=== PATIENT | male | born 1965 | race Caucasian/White ===

== ENCOUNTER 2016-08-03 08:25 | Observation (INO) | payer BC ==
[~2016-08-03] VITALS: Ht 177.8 cm; Wt 87.3 kg
[~2016-08-03 08:25] MED LIST: ALLO300T2 PO; ASPEC81 PO; CLBCRM30 EXT; FLUT1INH INH; IMDSR30 PO; INSDGI SC; METF-384 PO; METO25TA3 PO; MULT-610 PO; NRN300 PO; NTRSLP4 UT; NYSS/ PO; OXYC1TAB3 PO; PANT40TA PO; PLV75 PO; ROSU40TA PO; SITA100T3 PO; VALS-57 PO; VNTHFA/IN INH
[2016-08-03 09:00] VITALS: BP 121/78; PULSE 71; TEMP 36.5; O2SAT 96
[2016-08-03 09:03] VITALS: BMI 28.0
[2016-08-03] MEDS ORDERED: FENTANYL CITRATE INJ 50 MCG/1 ML 2 ML VIAL ONE ×4 (10:08→11:39)
[2016-08-03] MEDS ORDERED: MIDAZOLAM HCL 1 MG/ML 2ML VIAL ONE ×3 (10:08→11:34)
[2016-08-03] MEDS ORDERED: LIDOCAINE/EPINEPHRINE 1% 20 ML VIAL ONE (10:09)
--- NOTE | 2016-08-03 10:14 | Procedure Note ---
Pre-Mod Sedation Assessment General Date of Moderate Sedation: Aug 03, 2016. Vital Signs: Vital Signs Past 12 Hours Date Time Temp Pulse Resp B/P Pulse Ox O2 Delivery O2 Flow Rate FiO2 08/03/16 09:00 36.5 71 16 121/78 96 Room Air Review Cardiovascular: regular rate, rhythm, no edema, no gallop, no JVD, no murmur, + pertinent finding (diminished right radial pulse) Abdomen: normal bowel sounds, non tender, soft Lungs: lungs clear Pre-Sedation Airway Assessment Oral Cavity: WNL Able to Visualize Vocal Cords: No Short Thick Neck: No Hx of Sleep Apnea: No Smoking Status: Current Every Day Smoker Mallampati Classification: Class III Procedure Planning Contraindications-for Mod Sed: None Yes Notes The planned sedation has been discussed with the patient and consent obtained. I have identified the patient, determined the appropriateness of sedation and have assessed the patient immediately prior to the procedure. All medicine(s) and interventions are by my order.
--- NOTE | 2016-08-03 10:18 | History & Physical Bridge Note ---
H&P Re-Evaluation Bridge Note: I have examined the patient, reviewed the History & Physical and in the interval since the performance of the History & Physical I have noted the following changes of clinical significance: No changes noted Patient seen and examined by me. Three episodes of chest pain overnight . At rest. 30 minute longest. Episode this AM in prep area. No ST changes . Lasted several minutes. Spontaneous resolution. Procedure , risks, alternatives of cath/PCI discussed with patient. He consents to the procedure. Jerson Vaughan MD
[2016-08-03] MEDS ORDERED: HEPARIN SOD (PORCINE) 1000 UNIT/ML 10 ML VIAL ONE (10:59)
[2016-08-03] MEDS ORDERED: EPTIFIBATIDE 2 MG/ML 10 ML VIAL IV ONE (10:59)
[2016-08-03] MEDS ORDERED: EPTIFIBATIDE 0.75 MG/ML 75MG VIAL IV ONE (10:59)
[2016-08-03] MEDS ORDERED: NiCARDipine HCL INJ 2.5 MG/ML 10 ML AMP ONE (11:18)
[2016-08-03] MEDS ORDERED: NITROGLYCERIN/D5W 100MCG/ML 20ML SYR ONE (11:18)
[2016-08-03] MEDS ORDERED: CLOPIDOGREL BISULFATE 300 MG TAB PO ONE (11:53)
--- NOTE | 2016-08-03 12:51 | Procedure Note ---
Post-Mod Sedation Assessment General Date of Moderate Sedation Aug 03, 2016. Vital Signs: Vital Signs Past 12 Hours Date Time Temp Pulse Resp B/P Pulse Ox O2 Delivery O2 Flow Rate FiO2 08/03/16 11:55 73 16 118/89 97 Nasal Cannula 3 08/03/16 09:00 36.5 71 16 121/78 96 Room Air Review - Discharge Criteria Vital Signs Stable: Yes Alert/Oriented/Conversant: Yes Returned to Baseline Mental St: Yes Nausea Absent/Minimal: Yes Pain/Discomfort/Absent/Minimal: Yes Normal/Baseline Respirations: Yes Active Bleeding?: No Pt Received D/C Instructions: N/A Prescriptions Given: None Specific Proced. D/C Criteria Distal Pulses Present (Cardiac: Yes Groin site assessed-Card Cath: Yes Voided Prior To Discharge: Yes Discharged Patients Adult Escort/Transportation: N/A
[2016-08-03] MEDS ORDERED: ATROPINE SULFATE 0.1 MG/ML 5ML SYR IV PRN (13:00)
[2016-08-03] MEDS ORDERED: MoRPHine SULFATE 2 MG/ML CARP IV PRN (13:00)
[2016-08-03] MEDS ORDERED: NITROGLYCERIN 0.4 MG SL PER TAB CHARGE UT PRN (13:00)
[2016-08-03] MEDS ORDERED: ALBUTEROL HFA 8 GM INHALER INH PRN (13:00)
[2016-08-03] MEDS ORDERED: OXYCODONE HCL IR 5 MG TAB (IMMEDIATE RELEASE) PO PRN (13:00)
[2016-08-03] MEDS ORDERED: ONDANSETRON INJ 2 MG/ML 2 ML VIAL IV PRN (13:00)
[2016-08-03] MEDS ORDERED: ALUMINUM/MAGNESIUM/SIMETH (MAALOX MAX) 30 ML UDC PO PRN (13:00)
[2016-08-03] MEDS ORDERED: MAGNESIUM HYDROXIDE SUSP 30 ML UDC PO PRN (13:00)
[2016-08-03] MEDS ORDERED: ACETAMINOPHEN 325 MG TAB PO PRN (13:00)
[2016-08-03] MEDS ORDERED: IV FLUIDS COMPLETED PRN (13:45)
[2016-08-03] MEDS ORDERED: GLUCOSE 10 TABS/TUBE PO PRN (14:15)
[2016-08-03] MEDS ORDERED: GLUCOSE 40% GEL 15 GM TUBE PO PRN (14:15)
[2016-08-03] MEDS ORDERED: GLUCAGON FOR INJ 1 MG VIAL SQ PRN (14:15)
[2016-08-03] MEDS ORDERED: DEXTROSE 50% 50 ML SYR IV PRN (14:15)
[2016-08-03] MEDS ORDERED: CLOBETASOL~ORDER AWAITING ACTION SCH (16:00)
[2016-08-03 16:15] VITALS: BP 152/88; PULSE 92; TEMP 36.8; O2SAT 96; Ht 177.8 cm; Wt 87.3 kg
[2016-08-03] MEDS: SODIUM CHLORIDE 0.9% 1000ML 1,000 ML IV SCH (16:57)
--- NOTE | 2016-08-03 17:28 | Cardiac Catheterization ---
Procedure Note Procedure Date Aug 03, 2016. Pre-Procedure Diagnosis Angina (Worsening anginal symptoms developing over the past month Consistent with unstable angina. This included episodes of rest pain last night and this morning.), CAD AUC Score 7 Post-Procedure Diagnosis Severe CAD, Successful PCI, Elevated Intracardiac Pressures (LVEDP 19) Procedure(s) Performed Coronary Angiography, PTCA, Drug Eluting Stent, Ultrasound Guided Vascular Access, Femoral Artery Angiography Disease Case Manager Dr. Vaughan Alarm Operator(s) TAINA Nava Estimated Blood Loss 30 ml Medication(s) Clopidogrel (The patient was given additional 300 milligrams of oral clopidogrel post PCI. Was already on maintenance clopidogrel 75 milligrams daily.), Fentanyl, Heparin, Integrilin, Nitroglycerin (Intracoronary), Versed, Lidocaine 1% Summary of Findings Clinical indications: History of both bare metal stents and drug-eluting coronary artery stents. He has stents in his left circumflex marginal, proximal - early mid LAD, mid LAD, and right posterior descending artery. On March 17, 2015 he underwent deployment of a 2.25 x 18 millimeter Resolute drug-eluting stent in the proximal right PDA. On March 27/2015 deployment of 2 Resolute drug-eluting stents in the mid LAD. 2.25 x 18 millimeter and 2.25 x 8 millimeter stents. CAD risk factors include hypertension, dyslipidemia, type 2 diabetes mellitus, and continued cigarette smoking up to 1 pack a day. Over the past month the patient has developed recurrence of his typical anginal symptoms. This 1st was occurring with walking a few miles. Over the past month decreasing levels of activity have precipitated his anginal pain. Relief with rest. States that last night he had at least 3 episodes of rest anginal chest discomfort lasting up to 30 minutes. The episodes resolved with taking sublingual nitroglycerin. He had an episode while lying in the cardiac catheterization lab prep area this morning. An electrocardiogram was performed and revealed no diagnostic ischemic ST or T-wave abnormalities. The anginal symptoms spontaneously resolved prior to administration of any nitroglycerin. Catheterization site: 6 Singaporean sheath right femoral artery. The right radial artery was occluded from prior catheterization procedures. Diagnostic catheters: 6 Singaporean JL4 and JR4 diagnostic catheters. The JR4 catheter was used to perform left heart catheterization. Interventional equipment: 6 Singaporean EBU 3.75 guide catheter, Gem guidewire , Tipstar Sprinter 2.5 x 15 millimeter balloon dilatation catheter, Medtronic Resolute 3 x 18 millimeter drug-eluting stent, Medtronic Resolute 2.75 x 8 millimeter drug-eluting stent. Interventional protocol: Following diagnostic angiography intervention was performed to the lesions in the left circumflex. Balloon angioplasty was 1st performed to the proximal left circumflex stenosis. This was with the sprinter balloon. One balloon inflation of 8 atmospheres for 15 seconds was performed. The 3 x 18 millimeter stent was then deployed at a pressure of 16 atmospheres for duration of 35 seconds. Follow-up angiography was performed. Following close study of repeat left circumflex coronary angiograms in comparison to the coronary angiograms from 2015 it was felt that the stenosis in the distal left circumflex marginal was significant. The 2.75 x 8 millimeter stent was then deployed in a direct fashion to the stenosis at a pressure of 14 atmospheres for 45 seconds. A 2nd inflation was performed of the stent delivery balloon to a pressure 16 atmospheres for duration of 15 seconds. The stent delivery balloon did not become fully expanded until higher pressures were applied to the balloon. Follow-up angiography was then performed. During the balloon inflations patient has typical anginal symptoms. These resolved with deflation of the balloon. The patient had been given intravenous heparin and Integrilin prior to intervention. Therapeutic activated clotting times were documented. Hemostasis: When his ACT was less than 150 seconds hemostasis was obtained at the right femoral catheterization site with manual pressure. A closure device was not used because there was a large amount of scar tissue in the right femoral catheterization site. This was noted during insertion of the arterial sheath. Complications: None Interpretation: Fluoroscopy revealed coronary calcifications and the presence of the stents in the PDA, left circumflex marginal, and LAD. The coronary circulation is right dominant. Large caliber left main coronary artery without obstructive disease. Gave rise to medium caliber left descending and left circumflex coronary arteries. Proximal LAD with 30 percent and 20 percent sequential stenoses. There is then a stent from the proximal to early mid LAD. 30 percent in stent restenosis. The mid LAD then had a 20 percent stenosis. This was then followed by the mid LAD stents. 0-10 percent in stent restenosis inside of the mid LAD stents. The distal LAD was a very small caliber. Diffuse 0-10 percent stenoses. The proximal left circumflex had an eccentric 95 percent stenosis. This was followed by a 30-40 percent stenosis. The mid segment of the circumflex was aneurysmal. This involved the origin of a long medium caliber marginal artery. There is a stent in the proximal marginal with diffuse in stent restenosis of 30-50 percent. The distal marginal prior to bifurcating into 2 long small caliber branches had a focal 70 percent stenosis. Following stent deployment in the proximal circumflex the residual stenosis was 0-10 percent. No evidence of dissection, thrombus, perforation, or distal embolic event. Following stent deployment in the distal marginal residual stenosis 0 percent. There is a step-up and step-down prior to and distal to the stent respectively. No dissection, thrombus, perforation, or distal embolic event. Following intervention EDDY 3 flow throughout the left circumflex and its branches. The RCA was a medium caliber vessel. Proximal 0- 10 percent stenosis. The mid RCA had diffuse atherosclerotic disease with 10- 30 percent luminal diameter narrowing. 30 percent distal RCA stenosis. The distal RCA gave rise to a small caliber PDA. Patent stent site in the proximal PDA. The RCA gave rise to a small caliber posterolateral branch which had minor luminal irregularities. This gave rise to 2 very small caliber branches. In the event that a closure device was used right femoral angiography was performed. The sheath was located in the right common femoral artery. The right common femoral artery had a 20 percent stenosis. The right external iliac artery had no obstructive disease. The right superficial femoral artery and profunda artery had minor luminal irregularities. Plan: Observation admission overnight. Continue aspirin, clopidogrel, statin, angiotensin receptor lottie, and beta-lottie. Continue cardiology follow-up with Dr. Chaparro Ordaz Hemodynamics Rest Ao: 135/75/100 mm Hg Final Ao: 129/71/96 mm Hg LV: 147/19 mm Hg Recommendations Medical therapy and/or Counseling, PCI without planned CABG Specimens None Radiation Exposure (mGy) 3821 Contrast (mls) 275 ml Visipaque Fluids (cc crystalloids) 200 Drains none Anesthesia Intravenous Versed and fentanyl. Lidocaine 1 percent for local anesthesia Procedural Complication(s) None Disposition Behavioral Therapy Coordinator Holding/Recovery [facility] Data Cardiac Status Clinical evaluation leading to the procedure CAD Presntation: Unstable angina Anginal Classification: CCS IV Heart Failure: No Cardiogenic Shock w/in 24Hrs: No Cardiac Arrest w/in 24Hrs: No Imaging studies past 6 months: Yes Stress studies past 6 months: No Standard Exercise Stress Test: No Stress Echocardiogram: No Stress Testing w/SPECT MPI: No Cardiac CTA: No Coronary Anatomy Dominant: Right Left Main (% Stenosis): Normal LAD (% Stenosis): Proximal (30,20, then 30 % ISR), Mid (0-10 ), Distal (0-10) Circumflex (% Stenosis): Proximal (95.30-40) OM1 (% Stenosis): Proximal (diffuse 30-50 ISR), Distal (70) RCA (% Stenosis): Proximal (0-10), Mid (10-30), Distal (30) R PDA (% Stenosis): Proximal (Patent stent) R PL1 (% Stenosis): Proximal (0-10) Left Ventricular Angiography EF (%): Not applicable Diagnostic Physician's Name: Jakub Vaughan M.D. Status: Elective Closure Device Percutaneous Entry Location: Femoral Closure Device: none - manual hold Recommendations: Medical therapy and/or Counseling, PCI without planned CABG PCI Indication: Unstable Angina, Angina despite med therapy Lesion Segment Name: Proximal left circumflex Culprit Artery: Yes Stenosis Prior to Rx (%): 95 Chronic Total Occlusion: No IVUS: No FFR: No Pre-Procedure EDDY Flow: 3 Previously Treated Lesion: No Lesion Complexity: Non-High/Non-C Lesion Length (mm): 15 Thrombus Present: No Bifurcation Lesion: No Guidewire Across Lesion: Yes Guidewire: Stenosis Post-Procedure (%): 0-10 Post-Procedure EDDY Flow: 3 Device(s) Deployed: Yes Type of Device(s): Medtronic Resolute 3 x 18 millimeter drug eluting stent Lesion #2 Segment Name: Distal left circumflex marginal Culprit Artery: Yes Stenosis Prior to Rx (%): 70 Chronic Total Occlusion: No IVUS: No FFR: No Pre-Procedure EDDY Flow: 3 Previously Treated Lesion: No Lesion Complexity: Non-High/Non-C Lesion Length (mm): 4 Thrombus Present: No Bifurcation Lesion: No Guidewire Across Lesion: Yes Guidewire: Post-Procedure EDDY Flow: 3 Device(s) Deployed: Yes Type of Device(s): Medtronic Resolute 2.75 x 8 millimeter drug-eluting stent Intraprocedure Events Significant Dissection: No Perforation: No
[2016-08-03] MEDS: NYSTATIN SUSP 500,000 U/5 ML UDC PO SCH ×2 (18:20→20:04)
[2016-08-03 19:49] VITALS: BP 132/84; PULSE 78; TEMP 36.5; O2SAT 95
[2016-08-03] MEDS: METOPROLOL SUCC 25MG EXT REL TAB PO SCH (20:07)
[2016-08-03] MEDS ORDERED: GABAPENTIN 300 MG CAP PO SCH (21:00)
[2016-08-03] MEDS ORDERED: PANTOprazole SOD 40 MG TAB PO SCH (21:00)
[2016-08-03] MEDS ORDERED: INSULIN GLARGINE SOLOSTAR 100 UNITS/ML 3 ML PEN SC SCH (21:00)
[2016-08-03 22:59] VITALS: BP 138/83; PULSE 76; TEMP 36.8; O2SAT 93
[2016-08-04] MEDS: SODIUM CHLORIDE 0.9% 1000ML 1,000 ML IV SCH ×2 (03:00→08:24)
[2016-08-04 03:40] VITALS: BP 138/84; PULSE 80; TEMP 36.7; O2SAT 96
[2016-08-04 06:39] LABS: BASO % 0.3 %; BASO ABS # 0.02 K/uL (0-0.2); COMPLETE YES; EOS % 4.3 %; HEMATOCRIT 41.4 % (42-52); IG% 0.1 %; LYMPH ABS # 1.93 K/uL (1.2-3.4); MEAN CORPUSCULAR HEMOGLOBIN 31.4 pg (25-34); MEAN CORPUSCULAR HGB CONC 35.3 g/dl (32-36); MEAN PLATELET VOLUME 10.3 fL (7.4-10.4); MONO % 7.9 %; NEUT % 62.4 %; PLATELET COUNT 155 K/uL (130-400); RED BLOOD COUNT 4.65 M/uL (4.7-6.1); WHITE BLOOD COUNT 7.73 K/uL (4.8-10.8)
[2016-08-04 07:04] VITALS: BP 149/83; PULSE 71; TEMP 36.7; O2SAT 95
[2016-08-04 07:14] LABS: BUN/CREATININE RATIO 5.9 (10-20); CALCIUM 8.3 mg/dl (8.5-10.1); CREATININE 0.7 mg/dl (0.60-1.40); POTASSIUM 3.7 mmol/L (3.5-5.1)
[2016-08-04] MEDS: METOPROLOL SUCC 25MG EXT REL TAB PO SCH (08:26)
[2016-08-04] MEDS: NYSTATIN SUSP 500,000 U/5 ML UDC PO SCH (08:26)
[2016-08-04] MEDS ORDERED: ASPIRIN 81 MG ECTAB PO SCH (09:00)
[2016-08-04] MEDS ORDERED: VALSARTAN 80 MG TAB PO SCH (09:00)
[2016-08-04] MEDS ORDERED: CEROVITE ADV FORMULA TAB PO SCH (09:00)
[2016-08-04] MEDS ORDERED: ALLOPURINOL 300 MG TAB PO SCH (09:00)
[2016-08-04] MEDS ORDERED: ISOSORBIDE MONONITRATE 60 MG TABCR PO SCH (09:00)
[2016-08-04] MEDS ORDERED: CLOPIDOGREL BISULFATE 75 MG TAB PO SCH ×2 (09:00)
[2016-08-04] MEDS ORDERED: SITAGLIPTIN 100 MG TAB PO SCH (09:00)
[2016-08-04] MEDS ORDERED: ROSUVASTATIN CALCIUM 20 MG TAB PO SCH (09:00)
--- NOTE | 2016-08-04 09:08 | Discharge Instructions ---
Discharge Instructions Procedure Procedure Date: Aug 04, 2016. Reason for Visit: *Dr Vaughan To Do* Cad. Discharge Discharge Date: Aug 04, 2016. Discharge Diagnosis: Coronary stent Last Recorded Wt (Kilograms): 87.300 Anesthesia Post Anesthesia Instructions: If you have had General Anesthesia or IV Sedation: * Do not drive today. * Resume driving when surgeon permits. * Do not make important decisions or sign legal documents today. * Call surgeon for: 1. Temperature elevations greater than 101 degrees F. 2. Uncontrollable pain. 3. Excessive bleeding. 4. Persistent nausea and vomiting. 5. Medication intolerance (nausea, vomiting or rash). * For nausea and vomiting use only clear liquids such as: tea, soda, bouillon until nausea subsides, then gradually increase diet as tolerated. * If you have any concerns or questions, call your surgeon's office. If physician is unavailable and it is an emergency, call 911 or go to the nearest emergency room. Instructions Activity Recommendations: lifting limitation (No lifting over 10 pounds or strenuous exertion for 2 days.) Recommended Home Diet: low sodium, low cholesterol, diabetes diet Allergies: Coded Allergies: Bupropion (Verified Allergy, Unknown, rash, 03/15/15) Lorazepam (Unverified Allergy, Unknown, "GETS WEIRD", 10/26/15) Sulfamethoxazole w/Trimethoprim (Unverified Allergy, Unknown, RASH ON THE LEFT SIDE OF THE BODY, 10/26/15) Follow Up Additional Instructions: Call Dr. Ordaz for any cardiology problems. Follow-up with: Dr. Ordaz as scheduled [facility] Recommendations: Call your doctor if: * Temperature above 101 degrees * Pain not relieved by pain medicine ordered * There is increased drainage or redness from any incision * You have any unanswered questions or concerns. Your Doctors Instructions noted above were prepared by provider Jakub Vaughan. Patient Signature Section: Patient Instructions Signature Page Uriah Faulkner Patient (or Guardian) Signature/Date: I have read and understand the instructions given to me by my caregivers. Caregiver/RN/Doctor Signature/Date: The above-named patient and/or guardian has received patient instructions on this date. + Original Patient Signature Page (only) stays with chart. Please make copy for patient.
[2016-08-04 09:51] VITALS: BP 149/83; PULSE 71; TEMP 36.7; O2SAT 95
--- NOTE | 2016-08-09 07:09 | DISCHARGE SUMMARY ---
ATTENDING AND DISCHARGING PHYSICIAN: Jakub Vaughan M.D. PRIMARY PHYSICIAN: BELIA Gamez. PRIMARY [place]ILL[place] VESSEL OPERATOR: Chaparro Ordaz DO. DISCHARGE DIAGNOSES: 1. Coronary artery disease. History of stents in left circumflex marginal, proximal to early mid left anterior descending, mid left anterior descending, and right posterior descending artery. Recent reoccurrence of typical anginal symptoms. At the time of admission, they were occurring at rest. Symptoms consistent with unstable angina. 2. Cardiac catheterization July 06 performed via right femoral artery revealed 30% in-stent restenosis proximal to early mid left anterior descending. 0-10% restenosis inside mid left anterior descending stents. Proximal left circumflex with eccentric 95% stenosis. Stent in proximal left circumflex marginal with 30-50% in-stent restenosis. 70% distal left circumflex marginal stenosis. 3. Deployment of 3 x 18 mm Resolute drug-eluting stent proximal left circumflex 08/03/2016. 0% residual stenosis. Deployment of 2.75 x 8 mm Resolute drug-eluting stent in distal marginal. Residual stenosis 0%. No coronary, cardiac, or vascular complications. 4. Hypertension. 5. Dyslipidemia. 6. Type 2 diabetes mellitus. 7. Chronic cigarette smoking. DISCHARGE MEDICATIONS: Albuterol inhaler 2-4 puffs q. 6 hours as needed, allopurinol 300 mg daily, aspirin 81 mg daily, clobetasol cream b.i.d. as directed, clopidogrel 75 mg daily, fluticasone nasal spray daily, gabapentin 900 mg at bedtime, Lantus insulin 10 units subQ daily in the evening, isosorbide mononitrate 60 mg p.o. daily, metformin 1000 mg b.i.d., metoprolol succinate ER 25 mg b.i.d., multivitamin 1 daily, sublingual nitroglycerin 0.4 mg as needed, nystatin suspension 5 mL by mouth q.i.d., oxycodone 5 mg tabs 10 mg q. 6 hours as needed for pain, pantoprazole 40 mg daily, rosuvastatin 40 mg daily, Januvia 100 mg daily, valsartan 80 mg daily. ALLERGIES AND ADVERSE DRUG REACTIONS: LORAZEPAM, SULFAMETHOXAZOLE WITH TRIMETHOPRIM, BUPROPION. DISCHARGE DIET: Low fat, low cholesterol, diabetic, low sodium diet. DISCHARGE INSTRUCTIONS: No strenuous exertion or lifting over 10 pounds for 48 hours. DISCHARGE FOLLOWUP: Cardiology followup with Dr. Ordaz as scheduled. Continue primary care followup as scheduled. DISCHARGE INSTRUCTIONS: The patient was instructed to take his medications daily as directed. He was instructed to take his aspirin and clopidogrel daily. 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 He was instructed to call 911 immediately for any sustained chest pains. He was asked to call his physicians if he developed any new or recurrent cardiac type symptoms or any problems at his right femoral catheterization site. HISTORY AND HOSPITAL COURSE: For history, please see Dr. Ordaz's history and physical exam. The patient was referred for outpatient cardiac catheterization. When he presented to the catheterization lab, he informed us that he had had an episode of rest chest pain the night before. While in the cardiac catheterization lab prep area, he had an episode of rest chest discomfort. The electrocardiogram revealed no diagnostic changes of ischemia. The anginal episode in the cardiac cath lab manager recovery and prep area resolved spontaneously. A cardiac catheterization was performed via a 6-Khmer sheath in the right femoral artery. Findings as above. During balloon inflations to deploy the stents and during PTCA to the proximal left circumflex, he had his typical anginal symptoms. Hemostasis was obtained at the right femoral catheterization site with manual pressure. The patient was admitted to the telemetry unit for overnight observation. Following the procedure, he had no further complaints of any chest discomfort. At the time of discharge, he was walking multiple times around the unit. He had no anginal type symptoms with this. He had no bleeding complications at the right femoral catheterization site. No discomfort at the right femoral catheterization site. PHYSICAL EXAMINATION: VITAL SIGNS: On August 04, revealed oral temperature 36.7, pulse 71, room air pulse oximetry 95%. Blood pressure 138/84 and 149/83. CARDIAC AND LUNG: Normal. ABDOMEN: Normal. EXTREMITIES: Right femoral catheterization site without bleeding or hematoma. No bruit heard of right femoral artery. Distal pulses in the right ankle and foot palpable. LABORATORY DATA: On the morning of August 04 revealed hemoglobin 14.6, hematocrit 41.4, platelet count 155. Metabolic profile revealed a BUN 4 and creatinine 0.70. Random glucose 98. Sodium 143, potassium 3.7, chloride 108, carbon dioxide 28. ASSESSMENT: 1. Unstable anginal symptoms at the time of arrival to the cardiac catheterization lab prep area. 2. Severe proximal left circumflex stenosis. Successful intervention to the stenosis with deployment of a drug-eluting stent. Moderate left circumflex marginal stenosis. Successful intervention to this stenosis. 3. Mild to moderate in-stent restenosis at the sites of his other stents. 4. No vascular complications at right femoral catheterization site. 5. Resolution of anginal symptoms after successful left circumflex and left circumflex marginal interventions. 6. Continued cigarette smoking. The patient was strongly advised by me to discontinue cigarette smoking. He has already received this recommendation from Dr. Ordaz. The patient is aware of the health risk associated with continued cigarette smoking. PLAN: 1. Discharge home. 2. No strenuous exertion for 48 hours. 3. Continue usual cardiac medications. 4. Continue dual antiplatelet therapy. Ideally would continue this for at least 1 year following stent deployment on this admission. 5. If his blood pressure remains elevated, his antihypertensive medications will be adjusted as necessary. 6. He will have outpatient cardiology followup with Dr. Ordaz. This has already been scheduled. Continue primary care followup with Ms. Berrios. Over 30 minutes was spent in discharge management of this patient by me.
== END 2016-08-04 10:15 | disposition home or self-care (01) ==
LOC: C.CATH 08:25 → C.2T 13:04 → UNDOADMOB 13:04
PROVIDERS: ADMIT Internal Medicine Cardiovascular Disease; ATTEND Internal Medicine Cardiovascular Disease
DX: I25.119 Atherosclerotic heart disease of native coronary artery with unspecified angina pectoris (principal); F17.200 Nicotine dependence, unspecified, uncomplicated; E11.9 Type 2 diabetes mellitus without complications; K21.9 Gastro-esophageal reflux disease without esophagitis; E78.5 Hyperlipidemia, unspecified; I10 Essential (primary) hypertension